=== PATIENT | male | born 1995 | race Hispanic/Latino ===

== ENCOUNTER 2022-10-19 10:54 | Emergency (ER) | payer BC, SELFPAY ==
[2022-10-19 12:41] LABS: SARS-COV-2 RT PCR NEGATIVE (NEGATIVE)
--- NOTE | 2022-10-19 12:56 | EDPHYS ---
Physician Documentation [facility] Name: Hernandez Ho Age: 27 yrs Sex: Male : 1995 Arrival Date: 10/19/2022 Time: 10:56 Bed IW1 Private MD: ED Physician Pamela Moore HPI: 10/19 12:55 This 27 yrs old Male presents to ER via Ambulatory with complaints of Sore kb Throat, General Weakness. 12:55 The patient presents with sore throat. The patient describes throat pain as constant. kb The patient has not recently seen a physician. 12:55 Onset: The symptoms/episode began/occurred 3 day(s) ago. Severity of symptoms: At their kb worst the symptoms were moderate, in the emergency department the symptoms are unchanged. Modifying factors: The symptoms are alleviated by nothing, the symptoms are aggravated by swallowing, Patient's oral intake status: good. Associated signs and symptoms: Pertinent positives: fever, flu-like symptoms, Sore throat. The patient has not experienced similar symptoms in the past. Historical: - Allergies: 11:30 No Known Allergies; bp - Home Meds: 11:30 None [Active]; bp - PMHx: 11:30 None; bp - PSHx: 11:30 None; bp - Immunization history:: Adult Immunizations up to date. - Social history:: Smoking status: Patient denies any tobacco usage or history of. ROS: 12:54 Respiratory: Negative for shortness of breath, cough, wheezing, and pleuritic chest kb pain. 12:54 Constitutional: Positive for body aches, chills, fatigue, fever, malaise. 12:54 ENT: Positive for sore throat. 12:54 All other systems are negative. Exam: 12:54 Constitutional: This is a well developed, well nourished patient who is awake, alert, kb and in no acute distress. Head/Face: Normocephalic, atraumatic. Cardiovascular: Regular rate and rhythm with a normal S1 and S2. No gallops, murmurs, or rubs. No pulse deficits. Respiratory: Respirations even and unlabored. No increased work of breathing. Talking in full sentences Abdomen/GI: Soft, non-tender. No distention Skin: Warm, dry with normal turgor. Normal color. MS/ Extremity: Pulses equal, no cyanosis. Neurovascular intact. Full, normal range of motion. Neuro: Awake and alert, GCS 15, oriented to person, place, time, and situation. Moves all extremities. Normal gait. Psych: Awake, alert, with orientation to person, place and time. Behavior, mood, and affect are within normal limits. 12:54 ENT: Posterior pharynx: Airway: normal, no evidence of obstruction, Tonsils: with erythema, with exudate, Uvula: normal, midline, swelling, is not appreciated, erythema, that is moderate, exudate, that is mild. Vital Signs: 11:28 BP 145 / 85; Pulse 95; Resp 16; Temp 99.7; Pulse Ox 99% ; Weight 104.33 kg; Height 6 bp ft. 1 in. (185.42 cm); 11:28 Body Mass Index 30.34 (104.33 kg, 185.42 cm) bp MDM: 11:24 Patient medically screened. kb 12:54 Data reviewed: vital signs, nurses notes. Data interpreted: Pulse oximetry: on room air kb is 99 %. Interpretation: normal. Counseling: I had a detailed discussion with the patient and/or guardian regarding: the historical points, exam findings, and any diagnostic results supporting the discharge/admit diagnosis, lab results, the need for outpatient follow up, a family practitioner, to return to the emergency department if symptoms worsen or persist or if there are any questions or concerns that arise at home. 10/19 11:56 Order name: Group A Streptococcus Rapid Sc; Complete Time: 12:32 EDMS 10/19 11:57 Order name: COVID-19/FLU A+B; Complete Time: 12:43 EDMS 10/19 12:20 Order name: Throat Culture EDMS Administered Medications: No medications were administered Disposition Summary: 10/19/22 12:56 Discharge Ordered Location: Home kb Condition: Stable kb Diagnosis - Acute pharyngitis, unspecified kb Followup: kb - With: Emergency Department - When: As needed - Reason: Worsening of condition Followup: kb - With: Private Physician - When: 2 - 3 days - Reason: Recheck today's complaints, Continuance of care, Re-evaluation by your physician Discharge Instructions: - Discharge Summary Sheet kb - Pharyngitis, [id number] kb Forms: - Medication Reconciliation Form kb - Thank You Letter kb - Antibiotic Education kb - Prescription Opioid Use kb Addendum: 10/23/2022 17:39 STAFF ATTESTATION STATEMENT: I was immediately available onsite in the emergency s d2 department for consultation in the care of this patient. I did not see or examine this patient. Pamela Moore MD. Signatures: Dispatcher [employer] [facility] Tara Velasquez FNP-C FNP-Ckb Peltier, Brian, RN RN Pamela Mullins MD MD sd2
--- NOTE | 2022-10-19 12:56 | ER ---
Nurse's Notes [facility] Name: Hernandez Ho Age: 27 yrs Sex: Male : 1995 Arrival Date: 10/19/2022 Time: 10:56 Bed IW1 Private MD: Diagnosis: Acute pharyngitis, unspecified Presentation: 10/19 11:28 Chief complaint: Patient states: AVILES, CHILLS, MYALGIA, SORE THROAT X3 DAYS. Coronavirus bp screen: chills, congestion, sore throat, Client presents with at least one sign or symptom that may indicate coronavirus-19. Standard/surgical mask placed on the client. Ebola Screen: No symptoms or risks identified at this time. Initial Sepsis Screen: Does the patient meet any 2 criteria? No. Patient's initial sepsis screen is negative. Does the patient have a suspected source of infection? No. Patient's initial sepsis screen is negative. Risk Assessment: Do you want to hurt yourself or someone else? Patient reports no desire to harm self or others. Onset of symptoms is unknown. 11:28 Method Of Arrival: Ambulatory bp 11:28 Acuity: STACY 4 bp Historical: - Allergies: 11:30 No Known Allergies; bp - Home Meds: 11:30 None [Active]; bp - PMHx: 11:30 None; bp - PSHx: 11:30 None; bp - Immunization history:: Adult Immunizations up to date. - Social history:: Smoking status: Patient denies any tobacco usage or history of. Vital Signs: 11:28 BP 145 / 85; Pulse 95; Resp 16; Temp 99.7; Pulse Ox 99% ; Weight 104.33 kg; Height 6 bp ft. 1 in. (185.42 cm); 11:28 Body Mass Index 30.34 (104.33 kg, 185.42 cm) bp ED Course: 10:56 Patient arrived in ED. [id number] 10:59 Aidan Gamino PA is PHCP. cp 10:59 Pamela Moore MD is Attending Physician. cp 10:59 Tara Velasquez FNP-C is PHCP. kb 10:59 Pamela Moore MD is Attending Physician. kb 11:30 Triage completed. bp 11:30 Arm band placed on. bp 13:15 No provider procedures requiring assistance completed. Patient did not have IV access ss during this emergency room visit. Administered Medications: No medications were administered Outcome: 12:56 Discharge ordered by . michael 13:15 Discharged to home ambulatory. ss 13:15 Condition: good 13:15 Discharge instructions given to patient, family, Instructed on discharge instructions, follow up and referral plans. Demonstrated understanding of instructions, follow-up care. 13:33 Patient left the ED. ss Signatures: Tara Velasquez FNP-C FNP-Ckb Smirch, Shelby, RN RN ss Aidan Gamino PA PA Kve Sanchez, RN RN bp Pauly Fernandez [id number]
[2022-10-19 13:40] VITALS: BP 145/85; TEMP 99.7; O2SAT 99
== END 2022-10-19 13:33 | disposition home or self-care (01) ==
LOC: ER 10:54
DX: J02.9 Acute pharyngitis, unspecified (principal); Z20.822 Contact with and (suspected) exposure to COVID-19
CPT/HCPCS: 0240U; 87070; 87081; 99281